=== PATIENT | male | born 2000 | race Two or more races ===

== ENCOUNTER 2021-06-19 19:11 | Emergency (ER) | payer MEDICAID ==
[~2021-06-19] VITALS: Ht 177.8 cm; Wt 77.1 kg
[2021-06-19 19:16] VITALS: BP 135/90
== END 2021-06-20 02:46 | disposition left against medical advice (07) ==
LOC: ER 19:11
DX: R36.9 Urethral discharge, unspecified (principal); Z53.21 Procedure and treatment not carried out due to patient leaving prior to being seen by health care provider

== ENCOUNTER 2021-09-19 03:38 | Emergency (ER) | payer MEDICAID ==
[~2021-09-19] VITALS: Ht 165.1 cm; Wt 52.2 kg
[2021-09-19 03:38] VITALS: BP 124/75
== END 2021-09-19 07:35 | disposition left against medical advice (07) ==
LOC: ER 03:38
DX: R51.9 Headache, unspecified (principal); M54.50 Low back pain, unspecified; Z53.21 Procedure and treatment not carried out due to patient leaving prior to being seen by health care provider

== ENCOUNTER → 2023-03-08 | Emergency (ER) | payer MEDICAID ==
[~2023-03-08] VITALS: Ht 165.1 cm; Wt 52.3 kg
[~2023-03-08] MED LIST: MORPHINE SULFATE 4 MG/ML SYR/VIAL IV ONE; PANT40TA2 PO; PANTOPRAZOLE 40 MG/10 ML VIAL INJ IV ONE; PROCHLORPERAZINE EDISYLATE 5 MG/ML 2ML VIAL IV ONE; SODIUM CHLORIDE 0.9% 1,000 ML IVB ONE; ZOFR4T PO
[2023-03-08 11:47] VITALS: BP 166/66
[2023-03-08 12:37] LABS: Basophils # (auto) 0 10 ^3/uL (0-0.2); Basophils % (auto) 0.2 % (0.0-2.0); Eosinophils # (auto) 0 10 ^3/uL (0-0.8); Eosinophils % (auto) 0.1 % (0.0-7.0); Hematocrit 49.8 % (41.0-53.0); Hemoglobin 16.8 g/dL (13.5-17.5); Lymphocytes % (auto) 5.9 % (10.0-50.0); Mean Corpuscular Hemoglobin 30.2 pg (28.0-32.0); Mean Corpuscular Hgb Conc. 33.7 g/dL (32.0-36.0); Mean Corpuscular Volume 89.4 fL (80.0-100.0); Monocytes # (auto) 0.5 10 ^3/uL (0-1.3); Neutrophils # (auto) 15.4 10 ^3/uL (1.6-8.6); Neutrophils % (auto) 90.8 % (37.0-80.0); Red Blood Cells 5.57 10^6/uL (4.5-5.90); Red Cell Distribution Width 13.9 % (11.8-14.3)
[2023-03-08 13:40] LABS: Anion Gap 8 (5-15); Blood Urea Nitrogen 15 mg/dL (7-18); Carbon Dioxide 22 mmol/L (21-32); Chloride 106 mmol/L (98-107); Glucose 143 mg/dL (74-106); Potassium 4.2 mmol/L (3.5-5.1); Sodium 136 mmol/L (136-145)
[2023-03-08 13:41] LABS: Alanine Aminotransferase 44 U/L (16-61); Albumin 4.5 g/dL (3.4-5.0); Alkaline Phosphatase 91 U/L (45-117); Aspartate Aminotransferase 25 U/L (15-37); Bilirubin, Total 0.4 mg/dL (0.2-1.0); Calcium 10.3 mg/dL (8.5-10.1); GFR African American 129 mL/min; GFR Non-African American 107 mL/min; Total Protein 8.7 g/dL (6.4-8.2)
[2023-03-08 13:42] LABS: Lipase 107 U/L (73-393)
== END | disposition home or self-care (01) ==
LOC: ER 11:26
DX: F12.188 Cannabis abuse with other cannabis-induced disorder (principal); D72.829 Elevated white blood cell count, unspecified
CPT/HCPCS: 36415; 74176; 80053; 83690; 85025